=== PATIENT | male | born 1940 | race Caucasian/White ===

== ENCOUNTER 2022-06-21 13:46 | Inpatient (IN) | payer OTHER, MEDICAID ==
[~2022-06-21] VITALS: Ht 172.7 cm; Wt 90.7 kg
[2022-06-21 13:51] VITALS: BP 148/75
[2022-06-21] MEDS ORDERED: ACETAMINOPHEN 325 MG TAB PO ONE (14:10)
[2022-06-21] MEDS ORDERED: ONDANSETRON 4 MG/2 ML VIAL IVP ONE (14:10)
[2022-06-21] MEDS ORDERED: NACL 0.9% 1,000 ML IV ONE (14:10)
--- NOTE | 2022-06-21 14:27 | NUR ---
RECEIVED CALL FROM PTS SON/CAREGIVER ONESIMO. REPORTS NO ONE IS SICK AT HOME, JUST HIM. REPORTS HX OF DEMENTIA, PACEMAKER, QUADRUPLE BIPASS, DM, HTN, PROSTATE PROBLEMS. PRIMARY RN AND DR LENNON MADE AWARE
--- NOTE | 2022-06-21 15:10 | NUR ---
SPO2 DROPPED TO 85% ON RA. PT PLACED ON 4L N/C, SPO2 95%. PT ENCOURAGED TO TAKE DEEP BREATHS. DR LENNON AWARE
[2022-06-21 15:23] LABS: EOSINOPHILS % (MANUAL) 1 % (0-4); LYMPHOCYTES % (MANUAL) 5 % (20-46); MONOCYTES % (MANUAL) 3 % (5-12)
--- NOTE | 2022-06-21 15:26 | NUR ---
SWABS COLLECTED AND WALKED TO LAB.
[2022-06-21 15:32] LABS: HEMOGLOBIN 9.3 g/dL (12.0-18.0); RED BLOOD CELL COUNT(AUTO) 3.66 MIL/uL (4.20-6.10); WHITE BLOOD COUNT (AUTO) 12.3 K/uL (4.8-10.8)
[2022-06-21 15:33] LABS: HEMATOCRIT 29.1 % (36-52); MEAN CORPUSCULAR HEMOGLOBIN 25 pg (27-31); MEAN CORPUSCULAR HGB CONC 32 g/dL (33-37); MEAN CORPUSCULAR VOLUME 79.5 fL (80-94); PLATELET COUNT (AUTO) 160 K/uL (140-450); RED CELL DISTRIBUTION WIDTH 17.2 % (11.6-13.7)
[2022-06-21 15:53] LABS: ALBUMIN 3.7 g/dL (3.4-5.0); ANION GAP 15.4 (8-16); ASPARTATE AMINOTRANSFERASE 19 U/L (15-37); CHLORIDE 107 mmol/L (98-107); CREATININE 1.6 mg/dL (0.6-1.3); GLUCOSE 138 mg/dL (74-106); LIPASE 69 U/L (73-393); POTASSIUM 4.4 mmol/L (3.5-5.1); SODIUM SERUM 137 mmol/L (136-145); TOTAL BILIRUBIN 0.5 mg/dL (0.0-1.0); UREA NITROGEN, BLOOD 30 mg/dL (7-18)
[2022-06-21 18:10] LABS: APPEARANCE,URINE SL CLOUDY (CLEAR); BILIRUBIN,URINE NEGATIVE (NEGATIVE); BLOOD, URINE TRACE-I (NEGATIVE); COLOR,URINE YELLOW (YELLOW); LEUKOCYTE ESTERASE ,URINE 3+ (NEGATIVE); NITRITE, URINE POSITIVE (NEGATIVE); PH,URINE 6.5 (5.0-9.0); UGLUCOSE NEGATIVE (NEGATIVE)
[2022-06-21 18:28] LABS: RBC,URINE 0-5 /HPF (0-5); WBC,URINE 16-25 (MOD) /HPF (0-5)
[2022-06-21 18:29] LABS: TRICHOMONAS,URINE None Seen /HPF (None Seen); YEAST,URINE None Seen /HPF (None Seen)
[2022-06-21] MEDS ORDERED: ASPIRIN 81 MG TAB.CHEW PO ONE (18:35)
[2022-06-21] MEDS ORDERED: cefTRIAXone 1,000 MG VIAL ONE (18:35)
[2022-06-21] MEDS ORDERED: TEMA15CA24 PO (19:04)
[2022-06-21] MEDS ORDERED: FURO-572 PO (19:04)
[2022-06-21] MEDS ORDERED: INSU100S22 SUBQ (19:04)
[2022-06-21] MEDS ORDERED: HYDR-1100 PO (19:04)
[2022-06-21] MEDS ORDERED: POTA10TA70 PO (19:04)
[2022-06-21] MEDS ORDERED: ATOR40TA PO (19:04)
[2022-06-21] MEDS ORDERED: CARV3.12 PO (19:04)
[2022-06-21] MEDS ORDERED: TAMS0.4C96 PO (19:04)
--- NOTE | 2022-06-21 19:18 | NUR ---
Pt report given to MOR Escalante. Transfer of care at this time.
--- NOTE | 2022-06-21 19:45 | NUR ---
Patient resting in bed, A/Ox4, chest rise and fall symmetrical, no c/o pain or s/s of distress, patient on monitor Addendum: 06/21/22 at 2150 by [id number] Patient resting in bed, awake, hx of dementia, chest rise and fall symmetrical, no c/o pain or s/s of distress, patient on monitor
--- NOTE | 2022-06-21 19:50 | NUR ---
Diaper changed. Addendum: 06/21/22 at 2155 by [id number] Diaper changed, patient cleaned.
[2022-06-21] MEDS ORDERED: ACETAMINOPHEN 325 MG TAB PO PRN (20:25)
[2022-06-21] MEDS ORDERED: MAGNESIUM OXIDE 400 MG TAB PO PRN (20:25)
[2022-06-21] MEDS ORDERED: MORPHINE SULFATE 4 MG/ML SYR IVP PRN (20:25)
[2022-06-21] MEDS ORDERED: ONDANSETRON 4 MG/2 ML VIAL IVP PRN (20:25)
[2022-06-21] MEDS ORDERED: HYDROcodone/APAP 5/325 MG 1 TAB TAB PO PRN (20:25)
[2022-06-21] MEDS ORDERED: KCL 20 MEQ/WATER INJ PREMIX 200 ML IV PRN (20:25)
[2022-06-21] MEDS ORDERED: MAG SULF 2000 MG/WATER PREMIX 50 ML IV PRN (20:25)
[2022-06-21] MEDS ORDERED: POTASSIUM CHLORIDE 10 MEQ TABER PO PRN (20:25)
[2022-06-21] MEDS: NACL 0.9% 1,000 ML IV SCH (21:06)
--- NOTE | 2022-06-21 21:10 | NUR ---
Patient resting in bed, A/Ox4, chest rise and fall symmetrical, no c/o pain or s/s of distress, patient on monitor Addendum: 06/21/22 at 2151 by [email or web address] Patient resting in bed, awake, hx of dementia, chest rise and fall symmetrical, no c/o pain or s/s of distress, patient on monitor
--- NOTE | 2022-06-21 21:40 | NUR ---
Diaper changed, patient cleaned.
--- NOTE | 2022-06-21 21:54 | NUR ---
Patient will be admitted to care of Howie JUARES. Admited to Telemetry. Will go to room 108B. Belongings list completed. Report to Howie JUARES. Howie JUARES verbalized understanding of report, no further questions.
--- NOTE | 2022-06-21 22:10 | NUR ---
PT ARRIVED FROM ER VIA GURNEY. PT IS AWAKE AND ALERT. SPEAKS GUYANESE AND ARABIC CLEARLY. PT CAME IN FOR FLU LIKE SYMPTOMS. HAD NAUSEA AND VOMITING AT HOME BUT HAS NOT HAD ANY IN THE HOSPITAL. PT IS ON 3L NC SATING 97%. PT HAS RIGHT AC 20 GAUGE RUNNING AT 80 CC/HR. EDUCATED PT ADMINISTRATIVE JUDGE LIGHT SYSTEM. POC DISCUSSED. WILL CONTINUE TO MONITOR THE PT.
[2022-06-21 22:14] VITALS: BP_SYST 109; BP_SYST 121; BP_DIAS 55; BP_DIAS 62
[2022-06-22] VITALS: BP 121/62
--- NOTE | 2022-06-22 01:00 | NUR ---
PT IS AWAKE AND ASKED FOR EXTRA BLANKETS. NO OTHER COMPLAINS. WILL CONTINUE TO MONITOR THE PT.
--- NOTE | 2022-06-22 03:21 | NUR ---
PT WAS ASSISTED TO THE RESTROOM. AMBULATED WELL. WILL CONTINUE TO MONITOR THE PT.
[2022-06-22 04:00] VITALS: BP 119/63
--- NOTE | 2022-06-22 05:47 | NUR ---
OBSERVED PT. PT IS SLEEPING AND NOT IN ANY DISTRESS. BREATHING EVEN AND UNLABORED. CALL LIGHT WITHIN REACH. WILL CONTINUE TO MONITOR THE PT.
[2022-06-22 06:37] LABS: BASOPHILS % (AUTO) 0.2 % (0.0-2.0); EOSINOPHILS % (AUTO) 0.2 % (0.0-4.0); HEMATOCRIT 26.7 % (36-52); HEMOGLOBIN 8.4 g/dL (12.0-18.0); LYMPHOCYTES # (AUTO) 1.5 K/uL (2.0-11.5); MEAN CORPUSCULAR HEMOGLOBIN 25 pg (27-31); MEAN CORPUSCULAR HGB CONC 32 g/dL (33-37); MEAN CORPUSCULAR VOLUME 79.3 fL (80-94); MONOCYTES # (AUTO) 0.9 K/uL (0.8-1.0); MONOCYTES % (AUTO) 5.8 % (1.7-9.3); NEUTROPHILS # (AUTO) 13.7 K/uL (1.8-7.7); PLATELET COUNT (AUTO) 146 K/uL (140-450); RED BLOOD CELL COUNT(AUTO) 3.37 MIL/uL (4.20-6.10); RED CELL DISTRIBUTION WIDTH 17.9 % (11.6-13.7); WHITE BLOOD COUNT (AUTO) 16.1 K/uL (4.8-10.8)
[2022-06-22 07:15] LABS: ALBUMIN 3.4 g/dL (3.4-5.0); ANION GAP 14.5 (8-16); ASPARTATE AMINOTRANSFERASE 23 U/L (15-37); CARBON DIOXIDE 19.9 mmol/L (21-32); CHLORIDE 107 mmol/L (98-107); CREATININE 1.7 mg/dL (0.6-1.3); GLUCOSE 54 mg/dL (74-106); MAGNESIUM 1.8 mg/dL (1.8-2.4); POTASSIUM 4.4 mmol/L (3.5-5.1); SODIUM SERUM 137 mmol/L (136-145); TOTAL BILIRUBIN 0.6 mg/dL (0.0-1.0); UREA NITROGEN, BLOOD 32 mg/dL (7-18)
--- NOTE | 2022-06-22 07:17 | NUR ---
ENDORSED PT TO DAY SHIFT RN FOR CONTINUITY OF CARE. PT IS STABLE.
[2022-06-22 08:04] LABS: LYMPHOCYTES % (AUTO) 9.1 % (20.5-51.1); NEUTROPHILS % (AUTO) 84.7 % (42.2-75.2)
[2022-06-22 08:28] VITALS: BP 124/67
[2022-06-22] MEDS: NACL 0.9% 1,000 ML IV SCH ×2 (08:30→21:11)
--- NOTE | 2022-06-22 09:26 | NUR ---
PATIENT HAS BEEN SCREENED AND CATEGORIZED MODERATE NUTRITION RISK. PATIENT WILL BE SEEN WITHIN 3-5 DAYS OF ADMISSION. 06/21/22-06/26/[address]
[2022-06-22 11:43] VITALS: BP 116/69
[2022-06-22] MEDS ORDERED: DEXTROSE 50% 50 ML SYR IVP PRN (14:30)
[2022-06-22] MEDS ORDERED: INSULIN LISPRO SLIDING SCALE 100 UNITS/ML VIAL SUBQ PRN (14:30)
[2022-06-22 16:00] VITALS: BP 118/71
[2022-06-22] MEDS: BLOOD GLUCOSE MONITORING 1 DEV DEV FS SCH ×2 (16:30→20:35)
[2022-06-22 20:00] VITALS: BP 145/72
[2022-06-22] MEDS: hydrALAZINE 25 MG TAB PO SCH (20:36)
[2022-06-22] MEDS: carvediloL 3.125 MG TAB PO SCH (20:36)
[2022-06-22] MEDS ORDERED: ZOLPIDEM 5 MG TAB PO PRN (21:05)
[2022-06-23] VITALS: BP 122/68
[2022-06-23 04:00] VITALS: BP 131/82
[2022-06-23] MEDS: BLOOD GLUCOSE MONITORING 1 DEV DEV FS SCH ×3 (06:29→17:01)
--- NOTE | 2022-06-23 06:29 | NUR ---
Patient blood glucose is 60. Patient asymptomatic. Awake alert and oriented with no signs or symptoms of hypoglycemia. 4 oz juice given. Will recheck blood glucose level. Kin Porras RN.
--- NOTE | 2022-06-23 06:55 | NUR ---
Patient blood sugar rechecked and is now 86. Patient is in stable condition. Will endorse to day nurse. Kin Porras RN.
[2022-06-23 08:03] LABS: BASOPHILS # (AUTO) 0.1 K/uL (0.00-0.22); BASOPHILS % (AUTO) 0.7 % (0.0-2.0); EOSINOPHILS # (AUTO) 0.1 K/uL (0-0.4); EOSINOPHILS % (AUTO) 1.2 % (0.0-4.0); HEMATOCRIT 30.7 % (36-52); HEMOGLOBIN 9.8 g/dL (12.0-18.0); LYMPHOCYTES # (AUTO) 1.8 K/uL (2.0-11.5); LYMPHOCYTES % (AUTO) 18.3 % (20.5-51.1); MEAN CORPUSCULAR HEMOGLOBIN 25 pg (27-31); MEAN CORPUSCULAR HGB CONC 32 g/dL (33-37); MEAN CORPUSCULAR VOLUME 78.5 fL (80-94); MONOCYTES # (AUTO) 0.8 K/uL (0.8-1.0); NEUTROPHILS % (AUTO) 71.8 % (42.2-75.2); PLATELET COUNT (AUTO) 172 K/uL (140-450); RED BLOOD CELL COUNT(AUTO) 3.91 MIL/uL (4.20-6.10); RED CELL DISTRIBUTION WIDTH 17.6 % (11.6-13.7); WHITE BLOOD COUNT (AUTO) 9.7 K/uL (4.8-10.8)
[2022-06-23] MEDS ORDERED: TAMSULOSIN 0.4 MG CAP PO SCH (08:30)
[2022-06-23 08:31] LABS: ALBUMIN 3.8 g/dL (3.4-5.0); ANION GAP 15.8 (8-16); ASPARTATE AMINOTRANSFERASE 15 U/L (15-37); CARBON DIOXIDE 19.4 mmol/L (21-32); CHLORIDE 106 mmol/L (98-107); CREATININE 1.7 mg/dL (0.6-1.3); GLUCOSE 59 mg/dL (74-106); MAGNESIUM 2.1 mg/dL (1.8-2.4); POTASSIUM 4.2 mmol/L (3.5-5.1); SODIUM SERUM 137 mmol/L (136-145); TOTAL BILIRUBIN 0.5 mg/dL (0.0-1.0); UREA NITROGEN, BLOOD 37 mg/dL (7-18)
[2022-06-23 09:00] VITALS: BP 151/99
[2022-06-23] MEDS ORDERED: ATORVASTATIN 20 MG TAB PO SCH (09:00)
[2022-06-23] MEDS ORDERED: ECOTRIN 81 MG TABEC PO SCH (09:00)
[2022-06-23] MEDS ORDERED: INSULIN LANTUS 100 UNITS/ML 10 ML VIAL SUBQ SCH (09:00)
[2022-06-23] MEDS: carvediloL 3.125 MG TAB PO SCH (09:53)
[2022-06-23] MEDS: hydrALAZINE 25 MG TAB PO SCH (09:54)
[2022-06-23] MEDS: NACL 0.9% 1,000 ML IV SCH (09:55)
[2022-06-23 12:00] VITALS: BP 130/71
[2022-06-23] MEDS ORDERED: FOSF3PAC PO (16:55)
[2022-06-23] MEDS ORDERED: ASPI-1856 PO (16:55)
[2022-06-23] MEDS ORDERED: ERTAPENEM SODIUM 1,000 MG in NACL 0.9% 50 ML IV SCH (17:00)
[2022-06-23 17:27] VITALS: BP 147/70
--- NOTE | 2022-06-23 18:33 | NUR ---
PATIENT DISCHARGE TO HOME WITH A COPY OF DISCHARGE INSTRUCTION AND ALL BELONGINGS. INTACT 22 GAUGE INTRAVENOUS CATHETER TIP UPON REMOVAL. SON OF PATIENT ASSIST WITH TRANSPORTATION TO HOME, VERBALIZES UNDERSTANDING OF TEACHING AND FOLLOW UP.
[2022-06-24 06:08] LABS: HEPATITIS A ANTIBODY IGM Negative (Negative); HEPATITIS B CORE AB TOTAL Negative (Negative); HEPATITIS B SURFACE ANTIBODY Non Reactive (.); HEPATITIS B SURFACE ANTIGEN Negative (Negative)
== END 2022-06-23 18:00 | disposition home or self-care (01) | DRG 871 ==
LOC: MED 13:46 → MTU 20:23
PROVIDERS: ADMIT Internal Medicine; ATTEND Internal Medicine
DX: A41.9 Sepsis, unspecified organism (principal); I21.A1 Myocardial infarction type 2; N17.9 Acute kidney failure, unspecified; N39.0 Urinary tract infection, site not specified; B96.20 Unspecified Escherichia coli [E. coli] as the cause of diseases classified elsewhere; Z20.822 Contact with and (suspected) exposure to COVID-19; I25.10 Atherosclerotic heart disease of native coronary artery without angina pectoris; I10 Essential (primary) hypertension; C61 Malignant neoplasm of prostate; F03.90 Unspecified dementia, unspecified severity, without behavioral disturbance, psychotic disturbance, mood disturbance, and anxiety; E11.9 Type 2 diabetes mellitus without complications; E78.5 Hyperlipidemia, unspecified; Z95.1 Presence of aortocoronary bypass graft; Z95.0 Presence of cardiac pacemaker
CPT/HCPCS: 36415; 71045; 80053; 81001; 82948; 83605; 83690; 83735; 84484; 85025; 86704; 86706; 86708; 86709; 86803; 87040; 87081; 87086; 87340; 93005; 96361; 96365; 96375; 99291; J0696; J1335; J1644; J1815; J2405; J7060; Q9967

== ENCOUNTER 2022-08-08 13:03 | Emergency (ER) | payer OTHER, MEDICAID ==
[~2022-08-08] VITALS: Ht 170.2 cm; Wt 81.6 kg
[~2022-08-08 13:03] MED LIST: ASPI-1856 PO; ATOR40TA PO; CARV3.12 PO; FOSF3PAC PO; HYDR-1100 PO; INSU100S22 SUBQ; TAMS0.4C96 PO; TEMA15CA24 PO
[2022-08-08 13:26] VITALS: BP 139/61
--- NOTE | 2022-08-08 13:32 | NUR ---
PT TAKEN TO CT VIA WHEELCHAIR
[2022-08-08 14:12] LABS: BASOPHILS # (AUTO) 0.1 K/uL (0.00-0.22); BASOPHILS % (AUTO) 0.7 % (0.0-2.0); EOSINOPHILS # (AUTO) 0.2 K/uL (0-0.4); EOSINOPHILS % (AUTO) 2.8 % (0.0-4.0); HEMATOCRIT 32.2 % (36-52); HEMOGLOBIN 10.3 g/dL (12.0-18.0); LYMPHOCYTES # (AUTO) 1.3 K/uL (2.0-11.5); LYMPHOCYTES % (AUTO) 15.5 % (20.5-51.1); MEAN CORPUSCULAR HEMOGLOBIN 25 pg (27-31); MEAN CORPUSCULAR HGB CONC 32 g/dL (33-37); MEAN CORPUSCULAR VOLUME 77.4 fL (80-94); MONOCYTES # (AUTO) 0.8 K/uL (0.8-1.0); MONOCYTES % (AUTO) 9.3 % (1.7-9.3); NEUTROPHILS # (AUTO) 6.2 K/uL (1.8-7.7); NEUTROPHILS % (AUTO) 71.7 % (42.2-75.2); PLATELET COUNT (AUTO) 178 K/uL (140-450); RED BLOOD CELL COUNT(AUTO) 4.16 MIL/uL (4.20-6.10); RED CELL DISTRIBUTION WIDTH 19.2 % (11.6-13.7); WHITE BLOOD COUNT (AUTO) 8.7 K/uL (4.8-10.8)
[2022-08-08 14:46] LABS: ALBUMIN 3.9 g/dL (3.4-5.0); ANION GAP 10.9 (8-16); ASPARTATE AMINOTRANSFERASE 21 U/L (15-37); CARBON DIOXIDE 26.5 mmol/L (21-32); CHLORIDE 102 mmol/L (98-107); CREATININE 1.6 mg/dL (0.6-1.3); GLUCOSE 54 mg/dL (74-106); POTASSIUM 4.4 mmol/L (3.5-5.1); SODIUM SERUM 135 mmol/L (136-145); TOTAL BILIRUBIN 0.5 mg/dL (0.0-1.0); UREA NITROGEN, BLOOD 30 mg/dL (7-18)
[2022-08-08] MEDS ORDERED: AZIT250T4 PO (16:29)
[2022-08-08] MEDS ORDERED: IBUP-2213 PO (16:29)
[2022-08-08 17:33] VITALS: BP 139/61
--- NOTE | 2022-08-08 17:33 | NUR ---
Patient discharged with v/s stable. Written and verbal after care instructions given and explained. Patient verbalized understanding. WHEELCHAIR ASSIST with SON to car. All questions addressed prior to discharge. Advised to follow up with PMD. RX: [email or web address], [email or web address]
== END 2022-08-08 17:22 | disposition home or self-care (01) ==
LOC: MED 13:03
DX: R07.9 Chest pain, unspecified (principal); J18.9 Pneumonia, unspecified organism; E11.9 Type 2 diabetes mellitus without complications; I10 Essential (primary) hypertension; F03.90 Unspecified dementia, unspecified severity, without behavioral disturbance, psychotic disturbance, mood disturbance, and anxiety; Z79.4 Long term (current) use of insulin; Z79.899 Other long term (current) drug therapy; Z98.890 Other specified postprocedural states
CPT/HCPCS: 36415; 71045; 80053; 83880; 84484; 85025; 87040; 93005; 99285